=== PATIENT | female | born 1965 | race African-American/Black ===

== ENCOUNTER 2016-12-31 16:59 | Emergency (ER) | payer SELFPAY ==
[~2016-12-31] VITALS: Ht 168.9 cm; Wt 131.5 kg
[2016-12-31 17:13] VITALS: BP 116/72
--- NOTE | 2016-12-31 17:38 | PHYS DOC ---
Past Medical History Past Medical History: No Pertinent History Past Surgical History: Cholecystectomy, Hysterectomy Alcohol Use: None Drug Use: None Adult General Chief Complaint Chief Complaint: MECHANICAL FALL HPI HPI Patient is a 51 year old female presents emergency Department with a complaint of left-sided neck pain, right elbow pain and low back pain secondary to a slip and fall in a local grocery store within the past hour to an hour and a half. Patient states that she went to reach to open up a Door at the store when her leg slipped out from underneath of her she initially landed back on her buttocks and then onto her right elbow. States that she did hit her head on the floor. She states it was no loss of consciousness. Patient denies being on any anticoagulants patient has any history of skull fractures of the brain injuries. Patient denies any history of bone forming disorders or previous injuries to her neck, right elbow or lower back. Any focal weakness or alterations in sensation. She denies saddle anesthesia or loss of bowel or bladder control. Review of Systems Review of Systems Constitutional: Denies fever or chills [] Eyes: Denies change in visual acuity, redness, or eye pain [] HENT: Denies nasal congestion or sore throat [] Respiratory: Denies cough or shortness of breath [] Cardiovascular: No additional information not addressed in HPI [] GI: Denies abdominal pain, nausea, vomiting, bloody stools or diarrhea [] : Denies dysuria or hematuria [] Musculoskeletal: Denies back pain or joint pain [] Integument: Denies rash or skin lesions [] Neurologic: Denies headache, focal weakness or sensory changes [] Endocrine: Denies polyuria or polydipsia [] Current Medications Current Medications Current Medications Medications (Trade) Dose Ordered Sig/[facility] Start Time Stop Time Status Last Admin Dose Admin Acetaminophen/ Hydrocodone Bitart (Lortab 5/325) 1 tab 1X ONCE 12/31/16 17:45 12/31/16 17:46 DC 12/31/16 18:12 1 TAB Allergies Allergies Allergies Coded Allergies Type Severity Reaction Last Updated Verified No Known Drug Allergies 12/31/16 No Physical Exam Physical Exam Constitutional: Well developed, well nourished, no acute distress, non-toxic appearance. Patient walked into the emergency department with a steady, unaided gait. HENT: Normocephalic, atraumatic, bilateral external ears normal, oropharynx moist, no oral exudates, nose normal. Eyes: PERRLA, EOMI, conjunctiva normal, no discharge. [] Neck: Anterior and posterior radicular normal in appearance. There is tenderness to palpation the left paraspinous soft tissues at the level of C4- C6. There is no palpable defect, deformity or spasm. There is no midline tenderness. Patient demonstrates full range of motion without any complaints of increased pain. Cardiovascular:Heart rate regular rhythm, no murmur [] Lungs & Thorax: Bilateral breath sounds clear to auscultation [] Abdomen: Bowel sounds normal, soft, no tenderness, no masses, no pulsatile masses. [] Skin: Warm, dry, no erythema, no rash. [] Back: Back is normal in appearance without any bruising, abrasions or other rivera. There is tenderness to palpation to the bilateral paraspinous soft tissues of the level of L4-L5 and S1. No palpable defect, deformity, instability or crepitus. There are normoactive muscle spasms. Extremities: Right upper arm is normal in appearance. Patient has no complaints of pain to the right shoulder. Right elbow is normal in appearance with tenderness to palpation to the posterior lateral aspect of the elbow. There is no palpable defect, deformity, instability or crepitus. She demonstrates full active range of motion without any increased pain. Right upper extremity is neurovascular intact with capillary refill less than 2 seconds. Neurologic: Alert and oriented X 3, normal motor function, normal sensory function, no focal deficits noted. [] Psychologic: Affect normal, judgement normal, mood normal. [] Current Patient Data Vital Signs Vital Signs Date Time Temp Pulse Resp B/P Pulse Ox O2 Delivery O2 Flow Rate FiO2 12/31/16 18:12 20 97 Room Air 12/31/16 17:13 98.1 96 98.1 EKG EKG [] Radiology/Procedures Radiology/Procedures 4 views of patient's cervical spine, including swimmer's view, show degenerative changes but no evidence of acute injury. 3 views of patient's right elbow show no evidence of acute bony injury or pathologic soft tissue swelling. 3 views of patient's lumbosacral spine show degenerative changes, but no evidence of acute bony injury. Course & Med Decision Making Course & Med Decision Making Pertinent Labs and Imaging studies reviewed. (See chart for details) [] Dragon Disclaimer Dragon Disclaimer This electronic medical record was generated, in whole or in part, using a voice recognition dictation system. Departure Departure Impression: Primary Impression: Fall Additional Impressions: Cervical strain, acute Lumbosacral strain Elbow contusion Disposition: HOME, SELF-CARE Condition: GOOD Referrals: UNKNOWN PCP NAME (PCP) Patient Instructions: Elbow Contusion, [id number], Lumbosacral Strain, Soft Tissue Injury of the Neck, [id number] Additional Instructions: 1. The x-rays of your neck, right elbow and lower back show no broken bones or dislocations. 2. Take the medication as prescribed. 3. Review the discharge instructions provided for self-care and reasons to return to the emergency room. 4. Contact primary care doctor's office in the morning to schedule follow-up appointment by Saturday for reexamination. Scripts Hydrocodone/Apap 5-325 ([place] 5-325 Tablet)1 Each Tablet1 Tab PO PRN Q6HRS PRN PAIN #10 TAB Prov:PEMA GIBSON 12/31/16 Orphenadrine Citrate 100 Mg Tablet.er100 Mg PO BID muscle relaxer #14 Prov:PEMA GIBSON 12/31/16 Naproxen Sodium (Anaprox Ds)550 Mg [id number] Mg PO BID #20 Prov:PEMA GIBSON 12/31/16 Problem Qualifiers PEMA GIBSON Dec 31, 2016 17:38
[2016-12-31] MEDS ORDERED: HYDROCODONE/APAP 5/325MG TABLET. PO ONE (17:45)
[2016-12-31] MEDS ORDERED: ORPH100T PO (18:22)
[2016-12-31] MEDS ORDERED: NAPR550T PO (18:22)
[2016-12-31] MEDS ORDERED: HYDR-971 PO (18:22)
--- NOTE | 2017-01-01 08:51 | RAD ---
Right elbow radiographs History: Fell today on the right elbow, pain. Comparison: None. Findings: AP, lateral, and oblique views of the right elbow. No acute fracture or dislocation is identified. No joint effusion is seen. Impression: No acute osseous traumatic injury identified.
--- NOTE | 2017-01-01 08:54 | RAD ---
Cervical spine radiographs History: Fell today while pushing cart, left neck pain. Comparison: 09/20/2009. Findings: AP, lateral, swimmer's, and open-mouth odontoid views of the cervical spine. There is reversal of cervical lordosis which is also seen on previous study. Mild degenerative disc disease is seen at C5-6 with slight narrowing of the disc space. No acute fracture or acute malalignment is identified. No prevertebral soft tissue swelling is appreciated. Impression: No acute osseous traumatic injury identified.
--- NOTE | 2017-01-01 09:00 | RAD ---
Lumbar spine radiographs History: Fell while pushing cart, pain. Comparison: 09/27/2009. Findings: AP and lateral views of lumbar spine, 3 images. No acute fracture or acute malalignment is identified. There is mild multilevel degenerative disc disease. Mild multilevel facet degeneration is present. Cholecystectomy clips are present. Impression: No acute osseous traumatic injury identified.
== END 2016-12-31 18:35 | disposition home or self-care (01) ==
LOC: ER 16:59
DX: S16.1XXA Strain of muscle, fascia and tendon at neck level, initial encounter (principal); S39.012A Strain of muscle, fascia and tendon of lower back, initial encounter; S50.01XA Contusion of right elbow, initial encounter; Z90.710 Acquired absence of both cervix and uterus; Z90.49 Acquired absence of other specified parts of digestive tract; W01.0XXA Fall on same level from slipping, tripping and stumbling without subsequent striking against object, initial encounter; Y93.89 Activity, other specified; Y92.89 Other specified places as the place of occurrence of the external cause; Y99.8 Other external cause status
CPT/HCPCS: 72040; 72100; 73080; 99284

== ENCOUNTER 2017-08-30 14:24 | Emergency (ER) | payer OTHER ==
[~2017-08-30] VITALS: Ht 170.2 cm; Wt 99.8 kg
[~2017-08-30 14:24] MED LIST: HYDR-971 PO; NAPR-682 PO; ORPH100T PO
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
[2017-08-30] MEDS ORDERED: KETOROLAC 60 MG/2 ML INJ. IM ONE (15:30)
[2017-08-30] MEDS ORDERED: ORPHENADRINE CITRATE 60 MG/2 ML VIAL. IM ONE (15:30)
[2017-08-30] MEDS ORDERED: CYCL10TA2 PO (15:43)
[2017-08-30] MEDS ORDERED: NAPR-683 PO (15:43)
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
[2017-08-30 15:53] VITALS: BP 147/91
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
== END 2017-08-30 16:36 | disposition home or self-care (01) ==
LOC: ER 14:24
DX: S16.1XXA Strain of muscle, fascia and tendon at neck level, initial encounter (principal); S46.912A Strain of unspecified muscle, fascia and tendon at shoulder and upper arm level, left arm, initial encounter; Z90.49 Acquired absence of other specified parts of digestive tract; Z90.710 Acquired absence of both cervix and uterus; V43.52XA Car driver injured in collision with other type car in traffic accident, initial encounter; Y93.I9 Activity, other involving external motion; Y92.410 Unspecified street and highway as the place of occurrence of the external cause; Y99.8 Other external cause status
CPT/HCPCS: 72040; 73030; 96372; 99284; J1885; J2360

== ENCOUNTER 2017-11-14 06:28 | Emergency (ER) | payer OTHER ==
[2017-11-14] MEDS ORDERED: 0.9 % SODIUM CHLORIDE 10 ML DISP.SYRIN. IV ×2 (07:15)
[2017-11-14 07:28] LABS: ADD MAN DIFF? NO
[2017-11-14 07:35] LABS: BASO % 1 % (0-3); BILIRUBIN,URINE SMALL (NEG); CLARITY,URINE CLEAR; COLOR,URINE YELLOW; EOS # 0.2 x10^3/uL (0.0-0.7); EOS % 4 % (0-3); GLUCOSE,URINE NEGATIVE (NEG); HEMATOCRIT 39.8 % (36.0-47.0); HEMOGLOBIN 12.9 g/dL (12.0-15.5); LYMPH # 2.1 x10^3/uL (1.0-4.8); LYMPH % 47 % (24-48); MEAN CORPUSCULAR HEMOGLOBIN 28 pg (25-35); MEAN CORPUSCULAR HGB CONC 33 g/dL (31-37); MEAN CORPUSCULAR VOLUME 85 fL (79-100); MONO # 0.2 x10^3/uL (0.0-1.1); MONO % 5 % (0-9); NEUT % 43 % (31-73); NITRITE,URINE NEGATIVE (NEG); PH,URINE 5.5; PLATELET COUNT 306 x10^3/uL (140-400); PROTEIN,URINE NEGATIVE (NEG-TRACE); RED BLOOD COUNT 4.67 x10^6/uL (3.50-5.40); RED CELL DISTRIBUTION WIDTH 14.4 % (11.5-14.5); WHITE BLOOD COUNT 4.6 x10^3/uL (4.0-11.0)
[2017-11-14] MEDS ORDERED: CONTRAST GIVEN MC ×2 (07:45)
[2017-11-14 07:46] LABS: BACTERIA,URINE MOD /HPF (0-FEW); RBC,URINE OCC /HPF (0-2); SQUAMOUS EPITHELIAL CELL,UR MOD /LPF
[2017-11-14 07:49] LABS: ANION GAP 11 (6-14); BLOOD UREA NITROGEN 20 mg/dL (7-20); CALCIUM 9.6 mg/dL (8.5-10.1); CARBON DIOXIDE 26 mmol/L (21-32); CHLORIDE 102 mmol/L (98-107); GFR 70.5; GLUCOSE 115 mg/dL (70-99); POTASSIUM 4.4 mmol/L (3.5-5.1); SODIUM 139 mmol/L (136-145)
[2017-11-14] MEDS: ONDANSETRON PF 4 MG/2 ML VIAL. IV ×2 (07:53)
[2017-11-14 07:55] LABS: ALBUMIN 3.5 g/dL (3.4-5.0); ALK PHOS 154 U/L (46-116); ALT (SGPT) 45 U/L (14-59); AST (SGOT) 35 U/L (15-37); DIRECT BILIRUBIN 0.1 mg/dL (0.0-0.2); LIPASE 132 U/L (73-393); TOTAL BILIRUBIN 0.5 mg/dL (0.2-1.0); TOTAL PROTEIN 8.3 g/dL (6.4-8.2)
[2017-11-14] MEDS: KETOROLAC 30 MG/ML INJ. IV ×2 (07:56)
[2017-11-14 07:58] LABS: TROPONINI < 0.017 ng/mL (0.000-0.055)
[2017-11-14] MEDS: HYDROmorphone 2 MG/ML VIAL IV/SQ ×2 (07:59)
[2017-11-14 08:02] LABS: CKMB INDEX 0.5 % (0-4); CKMB MASS 1.6 ng/mL (0.0-3.6); CREATINE KINASE 348 U/L (26-192)
[2017-11-14] MEDS: IV NORMAL SALINE 1000ML BAG 1,000 ML IV ×2 (08:03)
[2017-11-14] MEDS: IOHEXOL 300 MG/ML 100ML VIAL. IV ×2 (08:37)
[2017-11-14] MEDS: fentaNYL PF VIAL 100 MCG/2 ML VIAL IV ×2 (09:22)
== END 2017-11-14 11:10 | disposition home or self-care (01) ==
LOC: ER 06:28
DX: S39.012A Strain of muscle, fascia and tendon of lower back, initial encounter (principal); N39.0 Urinary tract infection, site not specified; Z90.49 Acquired absence of other specified parts of digestive tract; Z90.710 Acquired absence of both cervix and uterus; Z88.5 Allergy status to narcotic agent; W01.0XXA Fall on same level from slipping, tripping and stumbling without subsequent striking against object, initial encounter; Y93.89 Activity, other specified; Y92.89 Other specified places as the place of occurrence of the external cause; Y99.8 Other external cause status
CPT/HCPCS: 36415; 74177; 80048; 80076; 81001; 82553; 83690; 84484; 85025; 96361; 96374; 96375; 99285-25; J1170; J1885; J2405; J3010; J7030; Q9967